=== PATIENT | male | born 1990 | race Caucasian/White ===

== ENCOUNTER → 2021-01-03 06:26 | Outpatient (CLI) | payer OTHER, SELFPAY ==
--- NOTE | 2021-01-03 06:29 | DI.MRI.S_ITS ---
PROCEDURE: MR LUMBAR SPINE WO CON INDICATIONS: SCOLOSIS TECHNIQUE: Noncontrast sagittal T1 spin echo and T2 fast echo, sagittal STIR, axial T1 and T2 fast spin echo through the lumbar spine. In cases with scoliosis, additional coronal T2 fast spin echo may be performed. COMPARISON: [facility], RG, XR L-SPINE 2-3V, 07/05/2020, 8:11. FINDINGS: Image quality: Excellent. Alignment and Curvature: S-shaped scoliotic curvature is present. Left apex is present at T10-11 with right apex at L2. Right apex is present at T12-L1. There is appearance of transitional anatomy with lumbarization of the 1st sacral vertebral body. For purposes of this exam, vertebral bodies are labeled 1 through 5. Prior to any surgical intervention, full x-ray spine series is recommended for more accurate assessment and numbering. Bone Marrow: Marrow is of normal overall signal. No acute vertebral body compression fractures. Spinal Cord: Conus medullaris terminates at the T12-L1 level. Visualized cord demonstrates normal signal and size. Paraspinous Soft Tissues: No paravertebral masses. Discs: Mild disc desiccation is present within the lumbar spine. T12-L1: No disc bulge, spinal stenosis or foraminal narrowing. L1-L2: No disc bulge, spinal stenosis or foraminal narrowing. L2-L3: No disc bulge or spinal stenosis. Minimal right foraminal narrowing. L3-L4: No disc bulge, spinal stenosis or foraminal narrowing. L4-L5: Mild disc bulge with small increased T2 signal posteriorly suggestive of annular fissure. No spinal stenosis. No foraminal narrowing. L5-S1: No disc bulge, spinal stenosis or foraminal narrowing. IMPRESSION: 1. Prominent scoliotic curvature as above. 2. Overall, no spinal stenosis within the lumbar spine. 3. Minimal right foraminal narrowing at L2-3. Dictated by: Beth Sinha M.D. on 01/03/2021 at 11:53 Approved by: Beth Sinha M.D. on 01/03/2021 at 12:05
== END ==
PROVIDERS: PCP Family Medicine; Referring Provider Physical Medicine & Rehabilitation; Visit Provider Physical Medicine & Rehabilitation
DX: M41.125 Adolescent idiopathic scoliosis, thoracolumbar region (principal); M47.816 Spondylosis without myelopathy or radiculopathy, lumbar region
CPT/HCPCS: 72148

== ENCOUNTER → 2021-01-26 07:14 | Outpatient (CLI) | payer OTHER, SELFPAY ==
[2021-01-29 16:30] LABS: COVID19 -Nasal RAPID Negative (Negative)
== END ==
PROVIDERS: PCP Family Medicine; Visit Provider Physical Medicine & Rehabilitation
DX: Z20.822 Contact with and (suspected) exposure to COVID-19 (principal)
CPT/HCPCS: 87635

== ENCOUNTER 2021-01-30 07:26 | Outpatient (CLI) | payer OTHER, SELFPAY ==
[2021-01-30] VITALS (10 sets, daily range): BP systolic 121–139; BP diastolic 58–74; PULSE 67–78; RESP 12–18; TEMP 36.6; O2SAT 99–100
--- NOTE | 2021-01-30 07:32 | DI.RAD.S_ITS ---
PROCEDURE: PAIN L/S FACET INJ/BLK 1ST ASHA COMPARISON: [facility], RG, XR L-SPINE 2-3V, 07/05/2020, 8:11. INDICATIONS: SPONDYLOSIS FINDINGS: Fluoroscopic spot filming was performed to verify placement of spinal needles at the L4-L5 level and the L5-S1 level on both sides, as labeled on the films. Appropriate location of the needle tips was confirmed by injection of iodinated contrast. IMPRESSION: Intraprocedural examination within normal limits. Dictated by: Tyron Campos M.D. on 01/30/2021 at 9:02 Approved by: Tyron Campos M.D. on 01/30/2021 at 9:03
[2021-01-30] MEDS: fentaNYL 100 MCG/2 ML INJ 50 MCG IV (08:21)
[2021-01-30] MEDS: MIDAZOLAM 5 MG/5 ML VIAL IV (08:27)
[2021-01-30] MEDS: BETAMETHASONE 30 MG/5 ML MDV 12 MG INJ (08:30)
[2021-01-30] MEDS: IOPAMIDOL 15 ML VIAL 3 ML INJ (08:30)
[2021-01-30] MEDS: LIDOCAINE 1% 20 ML 10 ML INJ (08:30)
[2021-01-30] MEDS: BUPIVACAINE 0.5% (PF) VIAL 2 ML INJ (08:30)
--- NOTE | 2021-01-30 08:44 | P.PCN_ITS ---
Date/Time/Diagnoses Date of procedure: 01/30/21 Time of procedure: 08:44 Pre-procedure diagnosis: 1. FACET ARTHROPATHY 2. AXIAL LBP 3. MULTILEVEL DDD Post-procedure diagnosis: same Procedure Notes Procedure: 1. FLUOROSCOPICALLY GUIDED CONTRAST CONTROLLED FACET JOINT INJECTIONS BILATERAL L4/5, L5/S1 Indications: Reji is referred by Dr. Johnson for treatment of Axial LBP Physician: Rolando Patel Total Fluoroscopy time (seconds): 15 Total sedation minutes: 18 Complications: none Procedure in detail & Post-procedure care: FINDINGS Multilevel Facet Arthropathy with Clinically significant axial LBP DESCRIPTION OF PROCEDURE Fluoroscopically guided, contrast-controlled bilateral L4/5, L5/S1 facet joint injections. Following review of allergy and review of potential side effects and complications, including, but not necessarily limited to, infection, allergic reaction, local tissue breakdown, stroke, temporary or permanent nerve injury, paralysis, and possible , the patient indicated that the patient understood and agreed to proceed. An informed consent document was signed by the patient, witnessed by a nurse, and placed in the patient's chart. Additionally, other treatment options including medications, modalities, and physical therapy were reviewed with the patient. After review of previous anaesthesic history and IV conscious sedation the patient was deemed safe to proceed with today?s procedure with IV conscious sedation as ASA class II designation. Safety time-out was performed to confirm patient ID, procedure to be performed and site of procedure. IV sedation was accomplished with a combination of 4mg of Versed and 50mcg of Fentanyl was administered by the RN after DO order, titrated to patient comfort during the course of the procedure while the patient remained responsive to all verbal commands In the prone position, following sterile prep and drape of the lumbar region, the posterior aspect of the L4/5, L5/S1 facet joints were identified fluoroscopically. The skin was anesthetized via a 25-gauge 1.5inch needle with 1% lidocaine solution into the corresponding facet joints. At this point, a 22- gauge 3.5-inch spinal needle was atraumatically introduced and advanced under fluoroscopic guidance into the corresponding facet joints. Following negative aspiration, injections of approximately 0.2cc of Isovue 200 confirmed inte rarticular placement without vascular uptake. The identical procedure was then performed at the L4/5, L5/S1 facet joints on the left. Radiological data, including multiple fluoroscopic views of the lumbosacral spine, reveal a spinal needle at the L4/5, L5/S1 facet joints bilaterally. Subsequent views show flow of contrast material both superiorly and inferiorly within the joint space without vascular or intrathecal uptake. At this point, a total of 0.5cc including a mixture of 0.25cc Marcaine and 0.25cc betamethasone was injected without complication into each of the corresponding facet joints. The patient tolerated the procedure well without signs or symptoms of complications prior to transfer to the recovery area continued monitoring without incident. The patient was then transferred to the recovery area where they were observed for an appropriate period of time after the injection. The patient reported a VAS score of 7 prior to the procedure and a post- procedure VAS of 0. POST OP INSTRUCTIONS The patient was provided a Pain Log to continue to record their response to the target-specific procedure prior to follow-up visit with their referring physician. Additionally, specific post-injection care instructions and a contact number to our office were provided if concerns arise regarding possible complications associated with the procedure are suspected.
== END 2021-01-30 09:05 | disposition home or self-care (01) ==
LOC: RAD 07:28
PROVIDERS: PCP Family Medicine; Referring Provider Physical Medicine & Rehabilitation; Visit Provider Physical Medicine & Rehabilitation
DX: M47.816 Spondylosis without myelopathy or radiculopathy, lumbar region (principal); M41.9 Scoliosis, unspecified; M51.36 Other intervertebral disc degeneration, lumbar region
CPT/HCPCS: 64493; 64494; 99152; J0702; J2250; J3010

== ENCOUNTER → 2021-04-29 13:46 | Outpatient (CLI) | payer OTHER, SELFPAY ==
--- NOTE | 2021-04-29 13:58 | DI.RAD.S_ITS ---
PROCEDURE: XR HAND RT MIN 3V INDICATIONS: crush injury 3rd mcp pain TECHNIQUE: 3 views of the hand(s) acquired. COMPARISON: None. FINDINGS: Bones: In this patient with this given history, scrutiny is given to the 3rd metacarpal. No definite fractures can be seen in the 3rd metacarpal. No fractures or dislocations are seen elsewhere. Carpal bones are normally aligned. No suspicious bony lesions. Soft tissues: No suspicious soft tissue calcifications. IMPRESSION: Unremarkable 3rd metacarpal. No fractures are seen elsewhere. If there is point tenderness (or other clinical suspicion for a fracture not seen on these images) then a dedicated CT could be considered for further evaluation, if clinically appropriate. Dictated by: Tyron Campos M.D. on 04/29/2021 at 13:06 Approved by: Tyron Campos M.D. on 04/29/2021 at 13:07
== END ==
PROVIDERS: PCP Family Medicine; Referring Provider Physician Assistant; Visit Provider Physician Assistant
DX: M79.641 Pain in right hand (principal); S67.21XA Crushing injury of right hand, initial encounter; X58.XXXA Exposure to other specified factors, initial encounter
CPT/HCPCS: 73130